=== PATIENT | female | born 1980 | race Two or more races ===

== ENCOUNTER → 2024-07-05 | Outpatient (CLI) | payer OTHER ==
[2024-07-05 14:42] LABS: BASO # 0.1 10^3/uL (0.0-0.2); BASO % 0.8 % (0.0-1.0); EOS # 0.3 10^3/uL (0.0-0.5); EOS % 2.9 % (0.0-3.0); HEMATOCRIT 42.1 % (36.0-47.0); HEMOGLOBIN 13.8 g/dl (12.0-15.5); LYMPH # 3.2 10^3/uL (1.5-5.0); LYMPH % 30.2 % (24.0-44.0); MEAN CORPUSCULAR HEMOGLOBIN 29.7 pg (27.0-33.0); MEAN CORPUSCULAR HGB CONC 32.8 g/dl (32.0-36.5); MEAN CORPUSCULAR VOLUME 90.7 fl (80.0-96.0); MONO # 0.7 10^3/uL (0.0-0.8); MONO % 6.1 % (2.0-8.0); NEUTROPHILS # 6.4 10^3/uL (1.5-8.5); NEUTROPHILS % 59.7 % (36.0-66.0); PLATELET COUNT, AUTOMATED 380 10^3/uL (150-450); RED BLOOD COUNT 4.64 10^6/uL (4.00-5.40); WHITE BLOOD COUNT 10.7 10^3/uL (4.0-10.0)
[2024-07-05 15:06] LABS: ERYTHROCYTE SEDIMENTATION RATE 65 mm/hr (0-20)
[2024-07-05 15:11] LABS: ALBUMIN 3.7 G/DL (3.2-5.2); ALKALINE PHOSPHATASE 75 U/L (35-104); ALT/SGPT 24 U/L (7.0-40); AST/SGOT 19 U/L (<34); BILIRUBIN,TOTAL 0.6 MG/DL (0.3-1.2); BLOOD UREA NITROGEN 14 MG/DL (9-23); CALCIUM LEVEL 8.8 MG/DL (8.5-10.1); CARBON DIOXIDE LEVEL 28 MMOL/L (20-31); CHLORIDE LEVEL 100 MMOL/L (98-107); GLOMERULAR FILTRATION RATE > 60.0 (>58); GLUCOSE, FASTING 99 MG/DL (60-100); POTASSIUM SERUM 4.1 MMOL/L (3.5-5.1); RHEUMATOID FACTOR QUANT < 3.5 IU/ML (<14); SODIUM LEVEL 137 MMOL/L (136-145); TOTAL PROTEIN 7.6 G/DL (5.7-8.2)
[2024-07-05 15:12] LABS: FREE THYROXINE INDEX 2.8 % (1.3-4.8); HEMOGLOBIN A1c 5.6 % (4.0-6.0); T UPTAKE 34.2 % (22.5-37.0); THYROID STIMULATING HORMONE 2.666 uIU/ML (0.55-4.78); THYROXINE (T4) 8.3 UG/DL (4.5-10.9)
[2024-07-05 15:13] LABS: FOLATE 17.5 NG/ML (>5.4)
[2024-07-05 15:17] LABS: VITAMIN B12 LEVEL > 2000 PG/ML (211-911)
[2024-07-06 07:58] LABS: T P ELECTROPHORESIS SO 7.6 g/dL (6.1-8.1)
== END ==
LOC: M PLALAB 09:33
PROVIDERS: ATTEND Psychiatry & Neurology Neurology
DX: E11.9 Type 2 diabetes mellitus without complications (principal); G43.909 Migraine, unspecified, not intractable, without status migrainosus; E53.8 Deficiency of other specified B group vitamins; E07.9 Disorder of thyroid, unspecified; G60.9 Hereditary and idiopathic neuropathy, unspecified; R20.0 Anesthesia of skin

== ENCOUNTER → 2024-07-09 | Outpatient (CLI) | payer OTHER | LOC: M PLAIMG 14:22 → EDUNIT# 15:00 | PROVIDERS: ATTEND Otolaryngology | DX: J32.0 Chronic maxillary sinusitis (principal); J34.89 Other specified disorders of nose and nasal sinuses ==

== ENCOUNTER → 2024-08-22 | Outpatient (CLI) | payer OTHER | LOC: M PLALAB 09:53 | PROVIDERS: ATTEND Physician Assistant | DX: R06.02 Shortness of breath (principal) ==

== ENCOUNTER → 2024-08-27 | Outpatient (CLI) | payer OTHER | LOC: M EKG 08:16 | PROVIDERS: ATTEND Physician Assistant | DX: R00.2 Palpitations (principal) ==

== ENCOUNTER → 2024-09-03 | Outpatient (CLI) | payer OTHER | LOC: M CARPUL 08:28 | PROVIDERS: ATTEND Physician Assistant | DX: R07.89 Other chest pain (principal) ==

== ENCOUNTER → 2024-12-19 | Outpatient (CLI) | payer OTHER ==
[~2024-12-19] MED LIST: IMIT50TA PO; LISI20TA35 PO; LORA-243 PO; MAGN200T PO; NORT25CA2 PO; VITA100093 PO
== END ==
LOC: M RAD 06:59
PROVIDERS: ATTEND Physician Assistant
DX: M50.021 Cervical disc disorder at C4-C5 level with myelopathy (principal); M50.30 Other cervical disc degeneration, unspecified cervical region; M47.812 Spondylosis without myelopathy or radiculopathy, cervical region

== ENCOUNTER → 2025-01-08 | Outpatient (CLI) | payer OTHER | LOC: M CARPUL 09:28 | PROVIDERS: ATTEND Physician Assistant | DX: R01.1 Cardiac murmur, unspecified (principal); I31.39 Other pericardial effusion (noninflammatory); I08.0 Rheumatic disorders of both mitral and aortic valves ==

== ENCOUNTER → 2025-02-12 | Outpatient (CLI) | payer OTHER ==
[~2025-02-12] MED LIST changes: +CALC600T60 PO; +VITA1TAB61 PO
[2025-02-12 10:32] LABS: APPEARANCE, URINE HAZY (CLEAR); BACTERIA, URINE AUTO NEGATIVE (NEGATIVE); BILIRUBIN, URINE AUTO NEGATIVE (NEGATIVE); BLOOD, URINE BLOOD 1+ (NEGATIVE); GLUCOSE, URINE (UA) AUTO NEGATIVE (NEGATIVE); GRANULAR CAST, URINE AUTO 2 /LPF; KETONE, URINE AUTO NEGATIVE (NEGATIVE); LEUKOCYTE ESTERASE, URINE AUTO NEGATIVE (NEGATIVE); MUCUS, URINE SMALL (NEGATIVE); NITRITE, URINE AUTO NEGATIVE (NEGATIVE); PROTEIN, URINE AUTO NEGATIVE (NEGATIVE); RBC, URINE AUTO 1 /HPF (0-3); SPECIFIC GRAVITY URINE AUTO 1.018 (1.002-1.035); SQUAMOUS EPITHELIAL CELL UR AU 1 /HPF (0-6); UROBILINOGEN, URINE AUTO 0.2 mg/dL (0.0-2.0); WBC, URINE AUTO 1 /HPF (0-3)
[2025-02-12 10:34] LABS: BASO # 0.1 10^3/uL (0.0-0.2); BASO % 0.6 % (0.0-1.0); EOS # 0.1 10^3/uL (0.0-0.5); EOS % 1.4 % (0.0-3.0); LYMPH # 2.4 10^3/uL (1.5-5.0); LYMPH % 27.8 % (24.0-44.0); MONO # 0.6 10^3/uL (0.0-0.8); MONO % 6.7 % (2.0-8.0); NEUTROPHILS # 5.5 10^3/uL (1.5-8.5); NEUTROPHILS % 63.3 % (36.0-66.0); PLATELET COUNT, AUTOMATED 316 10^3/uL (150-450)
[2025-02-12 10:41] LABS: INR 0.95
[2025-02-12 10:59] LABS: CALCIUM LEVEL 9.2 MG/DL (8.5-10.1); CARBON DIOXIDE LEVEL 30 MMOL/L (20-31); CHLORIDE LEVEL 99 MMOL/L (98-107); CREATININE FOR GFR 0.86 MG/DL (0.55-1.30); GLOMERULAR FILTRATION RATE 84.3 (>58); POTASSIUM SERUM 4.0 MMOL/L (3.5-5.1); SODIUM LEVEL 140 MMOL/L (136-145)
[2025-02-12 11:05] LABS: HCG, SERUM QUALITATIVE NEGATIVE (NEGATIVE)
== END ==
LOC: M PLALAB 08:53
PROVIDERS: ATTEND Registered Nurse
DX: Z01.818 Encounter for other preprocedural examination (principal)

== ENCOUNTER 2025-02-25 06:26 | Observation (INO) | payer OTHER ==
[~2025-02-25] VITALS: Ht 154.9 cm; Wt 115.1 kg
[2025-02-25] MEDS ORDERED: LR 1,000 ML IV SCH (06:55)
[2025-02-25] MEDS ORDERED: REMIFENTANIL 1MG VIAL As Ordered ONE (07:22)
[2025-02-25] MEDS ORDERED: LIDOCAINE 2% 100 MG/5 ML SDV (FOR ANES.) As Ordered ONE (07:22)
[2025-02-25] MEDS ORDERED: MIDAZOLAM INJ 2 MG/2 ML VIAL As Ordered ONE (07:22)
[2025-02-25] MEDS ORDERED: SUCCINYLCHOLINE 100MG/5ML SYRINGE As Ordered ONE (07:22)
[2025-02-25] MEDS ORDERED: ROCURONIUM BROMIDE 50MG/5ML VIAL As Ordered ONE (07:22)
[2025-02-25] MEDS ORDERED: PROPOFOL 1,000 MG/100 ML VIAL As Ordered ONE (07:23)
[2025-02-25 07:40] LABS: HCG, SERUM QUALITATIVE NEGATIVE (NEGATIVE)
[2025-02-25] MEDS: ceFAZolin SOD 2 GM IV ONCE IV ONE (08:00)
[2025-02-25] MEDS ORDERED: PHENYLephrine 500MCG 5ML (100MCG/ML) SYRINGE As Ordered ONE (08:11)
[2025-02-25] MEDS ORDERED: dexAMETHasone 4 MG/ML 1 ML VIAL As Ordered ONE (08:12)
[2025-02-25] MEDS ORDERED: PHENYLEPHRINE 10MG/ML 1ML VIAL As Ordered ONE (08:27)
[2025-02-25] MEDS ORDERED: GLYCOPYRROLATE INJ 0.2 MG/ML 2 ML VIAL As Ordered ONE (08:56)
[2025-02-25] MEDS: LIDOCAINE W/EPINEPHrine 1% 20 ML VIAL As Ordered ONE (09:02)
[2025-02-25] MEDS ORDERED: ONDANSETRON 4MG 2ML VIAL As Ordered ONE (10:48)
[2025-02-25] MEDS ORDERED: ACETAMINOPHEN 1000MG/100ML IV BAG As Ordered ONE (10:48)
[2025-02-25] MEDS ORDERED: HYDROmorphone HCL 2 MG/ML 1 ML VIAL As Ordered ONE (12:07)
[2025-02-25] MEDS: THROMBIN 20,000 UNITS KIT As Ordered ONE (12:39)
[2025-02-25] MEDS ORDERED: ONDANSETRON 4MG 2ML VIAL IV PRN ×2 (12:40→15:00)
[2025-02-25] MEDS ORDERED: CHLORASEPTIC SPRAY MT PRN (12:55)
[2025-02-25] MEDS ORDERED: METOPROLOL 5 MG/5 ML VIAL IV PRN (12:55)
[2025-02-25] MEDS ORDERED: hydrALAZINE 20 MG/ML 1 ML VIAL IV PRN (12:55)
[2025-02-25] MEDS ORDERED: CYCLOBENZAPRINE 10 MG TABLET PO PRN (12:55)
[2025-02-25] MEDS: LABETALOL 100 MG/20 ML VIAL IV ONE (13:15)
[2025-02-25] MEDS: HYDROMORPHONE HCL 0.5 MG/0.5 ML SYRINGE IV PRN (13:26)
[2025-02-25 17:00] VITALS: BP 126/69; TEMP 97.8; O2SAT 96
[2025-02-25] MEDS: NS (Normal Saline) 0.9% 1,000 ML IV ONE (17:13)
[2025-02-25] MEDS: LR 1,000 ML IV SCH (17:13)
[2025-02-25] MEDS: ACETAMINOPHEN 325 MG TAB PO SCH (17:20)
[2025-02-25] MEDS ORDERED: HOME MED LIST COMPLETE! XX SCH (17:40)
[2025-02-25 18:00] VITALS: BP 130/60; TEMP 98; O2SAT 96
[2025-02-25 19:00] VITALS: BP 128/58; O2SAT 96
[2025-02-25 20:03] VITALS: BP 128/58
[2025-02-25] MEDS: NORTRIPTYLINE 25 MG CAP PO SCH (20:03)
[2025-02-25] MEDS: DOCUSATE SODIUM 100 MG CAPSULE PO SCH (20:03)
[2025-02-25] MEDS: SENNA 8.6 MG TAB PO SCH (20:03)
[2025-02-25] MEDS: ceFAZolin SODIUM 2 GM in DEXTROSE 5% (D5W) ADV/MINI-BAG 50 ML IV SCH (20:04)
[2025-02-25 20:24] VITALS: BP 126/65; TEMP 97.8; O2SAT 96
[2025-02-26 00:15] VITALS: BP 153/71; TEMP 97.8; O2SAT 98
[2025-02-26 03:25] VITALS: BP 138/73; O2SAT 95
[2025-02-26 06:17] LABS: PLATELET COUNT, AUTOMATED 344 10^3/uL (150-450)
[2025-02-26 06:28] LABS: CALCIUM LEVEL 8.4 MG/DL (8.5-10.1); CARBON DIOXIDE LEVEL 28.0 MMOL/L (20-31); CHLORIDE LEVEL 101.0 MMOL/L (98-107); CREATININE FOR GFR 0.86 MG/DL (0.55-1.30); GLOMERULAR FILTRATION RATE 84.3 (>58); POTASSIUM SERUM 3.9 MMOL/L (3.5-5.1); SODIUM LEVEL 136.0 MMOL/L (136-145)
[2025-02-26 07:44] VITALS: BP 103/56; TEMP 97.8; O2SAT 96
[2025-02-26] MEDS: VITAMIN D 1,000 INTERNATIONAL UNITS TABLET PO SCH (08:49)
[2025-02-26] MEDS ORDERED: CYCLOBENZAPRINE 10 MG TABLET PO PRN (09:15)
[2025-02-26] MEDS ORDERED: OXYC1TAB23 PO (11:08)
[2025-02-26] MEDS ORDERED: CYCL5TAB4 PO (11:08)
[2025-02-26] MEDS ORDERED: COLA100C5 PO (11:08)
[2025-02-26 11:53] VITALS: BP 119/55; TEMP 97.2; O2SAT 98
[2025-02-26] MEDS ORDERED: HEPARIN SOD 5000 UNITS/ML 1 ML VIAL/SYRINGE SQ SCH (21:00)
== END 2025-02-26 15:04 | disposition home or self-care (01) ==
LOC: M SDC 06:26 → UNDOADMOB 06:27 → M RR INP 06:27 → M PCU 16:57
PROVIDERS: ADMIT Internal Medicine; ATTEND Neurological Surgery
DX: M50.021 Cervical disc disorder at C4-C5 level with myelopathy (principal); I10 Essential (primary) hypertension; G43.909 Migraine, unspecified, not intractable, without status migrainosus; E66.01 Morbid (severe) obesity due to excess calories; Z68.42 Body mass index [BMI] 45.0-49.9, adult; F32.A Depression, unspecified; F41.9 Anxiety disorder, unspecified; E55.9 Vitamin D deficiency, unspecified; J30.9 Allergic rhinitis, unspecified; Z91.048 Other nonmedicinal substance allergy status; Z98.891 History of uterine scar from previous surgery; Z98.890 Other specified postprocedural states; Z79.899 Other long term (current) drug therapy
CPT/HCPCS: 20936; 22551; 22853; 36415; 72040; 76000; 80048; 84703; 85027; 86850; 86900; 86901; 88304; 96361; 96365; 96376; 97116; 97161; 97165; 97535; C1713; C1762; J0131; J0330; J0688; J1100; J1171; J1596; J1920; J2250; J2371; J2405; J3010

== ENCOUNTER → 2025-04-09 | Outpatient (CLI) | payer OTHER ==
[~2025-04-09] MED LIST changes: +COLA100C5 PO; +CYCL5TAB4 PO; +OXYC1TAB23 PO
== END ==
LOC: M RAD 07:43
PROVIDERS: ATTEND Physician Assistant
DX: M50.021 Cervical disc disorder at C4-C5 level with myelopathy (principal)

== ENCOUNTER 2025-05-07 15:31 | Emergency (ER) | payer OTHER ==
[~2025-05-07] VITALS: Ht 154.9 cm; Wt 100.6 kg
[~2025-05-07 15:31] MED LIST changes: -MAGN250C PO; -TERB250T90 PO
[2025-05-07 15:36] VITALS: TEMP 97.7
[2025-05-07] MEDS ORDERED: MAGN250C PO (20:27)
[2025-05-07] MEDS ORDERED: TERB250T90 PO (20:27)
[2025-05-07] MEDS ORDERED: HOME MED LIST COMPLETE! XX SCH (20:30)
[2025-05-07 21:15] VITALS: BP 148/66; O2SAT 97
== END 2025-05-07 21:30 | disposition home or self-care (01) ==
LOC: M ED 15:31
DX: M62.81 Muscle weakness (generalized) (principal); I10 Essential (primary) hypertension; G43.909 Migraine, unspecified, not intractable, without status migrainosus; F41.9 Anxiety disorder, unspecified; F32.A Depression, unspecified; Z79.899 Other long term (current) drug therapy; Z91.89 Other specified personal risk factors, not elsewhere classified; Z91.030 Bee allergy status

== ENCOUNTER → 2025-05-07 | Outpatient (CLI) | payer OTHER ==
[~2025-05-07] MED LIST changes: +MAGN250C PO; +TERB250T90 PO
== END ==
LOC: M RAD 14:51
PROVIDERS: ATTEND Physician Assistant
DX: M50.021 Cervical disc disorder at C4-C5 level with myelopathy (principal)